=== PATIENT | female | born 1985 | race Caucasian/White ===

== ENCOUNTER 2021-07-05 00:06 | Emergency (ER) | payer BC ==
--- NOTE | 2021-07-05 00:31 | EDM.PDOC ---
ED HPI GENERAL MEDICAL PROBLEM - General Chief Complaint: Abdominal Pain Stated Complaint: ABDOMINAL PAIN Time Seen by Provider: 07/05/21 00:26 - History of Present Illness INITIAL COMMENTS - FREE TEXT/NARRATIVE: 35-year-old female presents the emergency room with nausea vomiting and lots of abdominal gas as well as discomfort. Patient states around 6:00 this evening patient developed quite a bit of gas she tried some Gas-X this did not seem to help. She later developed some nausea and vomiting she has had several episodes of small vomiting following a single episode of large-volume vomiting. She is not aware of eating anything that was suspect. She has not had any diarrhea. She is having regular bowel movements. She has no history of abdominal surgeries. She does not think she is but she is not positive. The patient is traveling through from [facility] Abdominal Pain Score (Numeric/FACES): 5 - Related Data Allergies Allergy/AdvReac Type Severity Reaction Status Date / Time fluticasone Allergy Cannot Verified 07/05/21 00:15 [From [employer] HFA] Remember Home Meds: Home Meds ARIPiprazole [Abilify] 1 tab PO DAILY 07/05/21 [History] Levothyroxine 1 tab PO DAILY 07/05/21 [History] Ondansetron [Zofran ODT] 4 mg PO Q6H PRN #10 tab.dis 07/05/21 [Rx] QUEtiapine [SEROquel] 1 tab PO DAILY 07/05/21 [History] Sertraline [Zoloft] 1 tab PO DAILY 07/05/21 [History] hydrOXYzine HCL [hydrOXYzine] 1 tab PO DAILY 07/05/21 [History] Past Medical History Psychiatric History: Reports: Anxiety, Depression Endocrine/Metabolic History: Reports: Hypothyroidism Dermatologic History: Reports: Other (See Below) Other Dermatologic History: pyonidal cysts - Infectious Disease History Infectious Disease History: Reports: None Social & Family History - Tobacco Use Tobacco Use Status *Q: Never Tobacco User Second Hand Smoke Exposure: No - Caffeine Use Caffeine Use: Reports: Energy Drinks - Recreational Drug Use Recreational Drug Use: Yes Recreational Drug Use Frequency: Rarely ED ROS GENERAL - Review of Systems Review Of Systems: See Below Constitutional: Reports: No Symptoms HEENT: Reports: No Symptoms Respiratory: Reports: No Symptoms Cardiovascular: Reports: No Symptoms Endocrine: Reports: No Symptoms GI/Abdominal: Reports: No Symptoms : Reports: No Symptoms Musculoskeletal: Reports: No Symptoms Skin: Reports: No Symptoms Neurological: Reports: No Symptoms ED EXAM, GENERAL - Physical Exam Exam: See Below Exam Limited By: No Limitations General Appearance: Alert, No Apparent Distress Head: Atraumatic, Normocephalic Neck: Normal Inspection, Supple, Non-Tender, Full Range of Motion Respiratory/Chest: No Respiratory Distress, Lungs Clear, Normal Breath Sounds Cardiovascular: Regular Rate, Rhythm, No Edema, No Murmur GI/Abdominal: Normal Bowel Sounds, Soft, Other (He has some mild epigastric discomfort but really no significant discomfort no rigidity rebound or guarding noted) Back Exam: Normal Inspection. No: CVA Tenderness (L), CVA Tenderness (R) Extremities: Normal Inspection, No Pedal Edema Neurological: Alert, Oriented, Normal Cognition Course - Vital Signs Last Recorded V/S: Last Vital Signs Temp 36.4 C 07/05/21 00:11 Pulse 93 07/05/21 00:11 Resp 20 07/05/21 00:11 BP 140/95 H 07/05/21 00:11 Pulse Ox 99 07/05/21 00:11 - Orders/Labs/Meds Orders: Active Orders 24 hr Category Date Time Status CULTURE URINE [MREF] Stat Lab 07/05/21 00:40 Received Labs: Laboratory Tests 07/05/21 07/05/21 07/05/21 Range/Units 00:20 00:20 00:20 WBC 10.77 H (3.98-10.04) K/mm3 RBC 4.69 (3.98-5.22) M/mm3 Hgb 14.8 (11.2-15.7) gm/dl Hct 42.7 (34.1-44.9) % MCV 91.0 (79.4-94.8) fl MCH 31.6 (25.6-32.2) pg MCHC 34.7 (32.2-35.5) g/dl RDW Std Deviation 43.7 (36.4-46.3) fL Plt Count 326 (182-369) K/mm3 MPV 10.4 (9.4-12.3) fl Neut % (Auto) 85.5 H (34.0-71.1) % Lymph % (Auto) 8.4 L (19.3-51.7) % [place] % (Auto) 5.4 (4.7-12.5) % Eos % (Auto) 0.5 L (0.7-5.8) Baso % (Auto) 0.1 (0.1-1.2) % Neut # (Auto) 9.22 H (1.56-6.13) K/mm3 Lymph # (Auto) 0.90 L (1.18-3.74) K/mm3 [place] # (Auto) 0.58 H (0.24-0.36) K/mm3 Eos # (Auto) 0.05 (0.04-0.36) K/mm3 Baso # (Auto) 0.01 (0.01-0.08) K/mm3 Manual Slide Review Abnormal smear Sodium 139 (136-145) mEq/L Potassium 3.8 (3.5-5.1) mEq/L Chloride 102 (98-107) mEq/L Carbon Dioxide 28 (21-32) mEq/L Anion Gap 12.8 (5-15) BUN 17 (7-18) mg/dL Creatinine 0.8 (0.55-1.02) mg/dL Est Cr Clr Drug Dosing 82.74 mL/min Estimated GFR (MDRD) > 60 (>60) mL/min BUN/Creatinine Ratio 21.3 H (14-18) Glucose 114 H (70-99) mg/dL Calcium 8.9 (8.5-10.1) mg/dL Total Bilirubin 0.8 (0.2-1.0) mg/dL AST 20 (15-37) U/L ALT 28 (14-59) U/L Alkaline Phosphatase 85 (46-116) U/L Total Protein 7.9 (6.4-8.2) g/dl Albumin 4.0 (3.4-5.0) g/dl Globulin 3.9 gm/dL Albumin/Globulin Ratio 1.0 (1-2) Lipase 63 L (73-393) U/L HCG, Qual Negative (NEGATIVE) Urine Color (Yellow) Urine Appearance (Clear) Urine pH (5.0-8.0) Ur Specific [place] (1.005-1.030) Urine Protein (Negative) Urine Glucose (UA) (Negative) Urine Ketones (Negative) Urine Occult Blood (Negative) Urine Nitrite (Negative) Urine Bilirubin (Negative) Urine Urobilinogen (0.2-1.0) Ur Leukocyte Esterase (Negative) U Hyaline Cast (Auto) (0-5) /lpf Urine RBC (0-5) /hpf Urine WBC (0-5) /hpf Ur Squamous Epith Cells (0-5) /hpf Urine Bacteria (FEW) /hpf Urine Mucus (FEW) /hpf 07/05/21 Range/Units 00:40 WBC (3.98-10.04) K/mm3 RBC (3.98-5.22) M/mm3 Hgb (11.2-15.7) gm/dl Hct (34.1-44.9) % MCV (79.4-94.8) fl MCH (25.6-32.2) pg MCHC (32.2-35.5) g/dl RDW Std Deviation (36.4-46.3) fL Plt Count (182-369) K/mm3 MPV (9.4-12.3) fl Neut % (Auto) (34.0-71.1) % Lymph % (Auto) (19.3-51.7) % [place] % (Auto) (4.7-12.5) % Eos % (Auto) (0.7-5.8) Baso % (Auto) (0.1-1.2) % Neut # (Auto) (1.56-6.13) K/mm3 Lymph # (Auto) (1.18-3.74) K/mm3 [place] # (Auto) (0.24-0.36) K/mm3 Eos # (Auto) (0.04-0.36) K/mm3 Baso # (Auto) (0.01-0.08) K/mm3 Manual Slide Review Sodium (136-145) mEq/L Potassium (3.5-5.1) mEq/L Chloride (98-107) mEq/L Carbon Dioxide (21-32) mEq/L Anion Gap (5-15) BUN (7-18) mg/dL Creatinine (0.55-1.02) mg/dL Est Cr Clr Drug Dosing mL/min Estimated GFR (MDRD) (>60) mL/min BUN/Creatinine Ratio (14-18) Glucose (70-99) mg/dL Calcium (8.5-10.1) mg/dL Total Bilirubin (0.2-1.0) mg/dL AST (15-37) U/L ALT (14-59) U/L Alkaline Phosphatase (46-116) U/L Total Protein (6.4-8.2) g/dl Albumin (3.4-5.0) g/dl Globulin gm/dL Albumin/Globulin Ratio (1-2) Lipase (73-393) U/L HCG, Qual (NEGATIVE) Urine Color Yellow (Yellow) Urine Appearance Slt cloudy H (Clear) Urine pH 6.5 (5.0-8.0) Ur Specific [place] 1.025 (1.005-1.030) Urine Protein 1+ H (Negative) Urine Glucose (UA) Negative (Negative) Urine Ketones Negative (Negative) Urine Occult Blood 2+ H (Negative) Urine Nitrite Negative (Negative) Urine Bilirubin Negative (Negative) Urine Urobilinogen 0.2 (0.2-1.0) Ur Leukocyte Esterase Trace H (Negative) U Hyaline Cast (Auto) 5-10 H (0-5) /lpf Urine RBC 5-10 H (0-5) /hpf Urine WBC 0-5 (0-5) /hpf Ur Squamous Epith Cells 0-5 (0-5) /hpf Urine Bacteria Few (FEW) /hpf Urine Mucus Few (FEW) /hpf Meds: Medications Discontinued Medications Generic Name Dose Route Start Last Admin Trade Name Freq PRN Reason Stop Dose Admin Al Hydroxide/Mg Hydroxide 30 0 ml 07/05/21 02:23 07/05/21 02:33 ml/ Lidocaine HCl 15 ml PO 07/05/21 02:24 45 ml ONETIME ONE Administration Lactated Ringer's 1,000 mls @ 999 mls/hr 07/05/21 00:33 07/05/21 00:40 Ringers, Lactated IV 07/05/21 01:33 999 mls/hr .BOLUS ONE Administration Ondansetron HCl 4 mg 07/05/21 00:33 07/05/21 00:41 Ondansetron 4 Mg/2 Ml Sdv IVPUSH 07/05/21 00:34 4 mg ONETIME ONE Administration Ondansetron HCl 4 mg 07/05/21 02:20 Ondansetron 4 Mg/2 Ml Sdv IVPUSH 07/05/21 02:21 ONETIME ONE - Re-Assessments/Exams Free Text/Narrative Re-Assessment/Exam: 07/05/21 02:49 Patient had good relief with a liter of fluid Zofran however she still was having some discomfort I gave her a GI cocktail and this knocked her pain down f rom about a 4 to a 1. Labs are nondiagnostic she is got some microscopic hematuria she does not routinely have periods because of her IUD. There is trace leukocyte Estrace a urine culture has been set up but she is not having UTI symptoms will not treat at this point. We did discuss further imaging such as CT scanning which I do not think would be very beneficial her exam is not really suggestive of an acute abdomen she has minimal discomfort except in the upper quadrant areas her lipase is normal we did discuss there is a small chance of missing pancreatitis with a normal lipase. She has no pain over the gallbladder. And she has no lower abdominal discomfort at all with palpation. Patient agrees to return to this emergency room or the closest emergency room if not better in 24 hours and certainly sooner if getting worse. Departure - Departure Time of Disposition: 02:52 Disposition: Home, Self-Care 01 Clinical Impression: Gastroenteritis - Discharge Information Referrals: PCP,Not In Area [Primary Care Provider] - Forms: ED Department Discharge Additional Instructions: Return to this or any emergency room with any questions problems or concerning symptoms. Return in 24 hours if not significantly better. You have been started on Zofran, the nausea medication take 1 every 6 hours as needed for nausea and vomiting. Start Pepcid, or famotidine the generic version, 1 tablet twice daily for 5 days and then 1 tablet daily thereafter. Clear liquid diet for 24 hours then slowly advance as tolerated Sepsis Event Note (ED) - Focused Exam Vital Signs: Vital Signs Temp Pulse Resp BP Pulse Ox 07/05/21 00:11 36.4 C 93 20 140/95 H 99 - My Orders Last 24 Hours: My Active Orders 07/05/21 00:40 CULTURE URINE [MREF] Stat - Assessment/Plan Last 24 Hours: My Active Orders 07/05/21 00:40 CULTURE URINE [MREF] Stat
[2021-07-05] MEDS ORDERED: Ondansetron 4 MG/2 ML SDV IVPUSH ONE ×2 (00:33→02:20)
[2021-07-05] MEDS ORDERED: Lactated Ringers 1,000 ML IV ONE (00:33)
[2021-07-05] MEDS ORDERED: Alum Hydrox/Mag Hydrox/Simeth 30 ML, Lidocaine 2% 15 ML PO ONE ×2 (02:23)
[2021-07-05] MEDS ORDERED: Ondansetron 4 MG Tab.DIS PO ONE (02:52)
[2021-07-05] MEDS ORDERED: Famotidine 20 MG Tab ONE (03:06)
[2021-07-05] MEDS ORDERED: Famotidine 20 MG Tab PO STA (03:13)
[2021-07-05] MEDS ORDERED: Famotidine 20 MG Tab PO SCH (21:00)
== END 2021-07-05 03:17 | disposition home or self-care (01) ==
LOC: JD.ED 00:06
DX: K52.9 Noninfective gastroenteritis and colitis, unspecified (principal); E03.9 Hypothyroidism, unspecified; Z88.8 Allergy status to other drugs, medicaments and biological substances; Z79.899 Other long term (current) drug therapy
CPT/HCPCS: 36415; 80053; 81001; 83690; 84703; 85025; 87086; 96374; 99284; A9270; J2405; J7120